=== PATIENT | female | born 1975 | race Caucasian/White ===

== ENCOUNTER → 2020-11-03 09:13 | Outpatient (CLI) | payer BC, SELFPAY ==
--- NOTE | 2020-11-03 | DI.US.S_ITS ---
PROCEDURE: US SOFT TISSUE HEAD AND NECK INDICATIONS: LOCALIZED SWELLING/LUMP LEFT NECK TECHNIQUE: Real-time scanning was performed of the neck region of interest, with image documentation. COMPARISON: None. FINDINGS: Targeted sonographic imaging over the patient directed area of palpable concern was performed. No focal mass or abnormal fluid collection visualized. No overlying skin abnormalities. No hypervascularity. There is a bony prominence underlying the palpable area of concern likely representing a prominent component of the underlying vertebral body. This is noted over the left side of the mid/posterior neck. IMPRESSION: No suspicious mass or fluid collection identified at the palpable area of patient concern in the left neck. There is underlying osseous prominence of a presumed vertebral body. Consider further evaluation with radiographs of the cervical spine with skin marker to denote area of palpable concern. Dictated by: Zack Novak M.D. on 11/03/2020 at 10:50 Approved by: Zack Novak M.D. on 11/03/2020 at 10:54
== END ==
PROVIDERS: Referring Provider Naturopath; Visit Provider Naturopath
DX: R22.9 Localized swelling, mass and lump, unspecified (principal)
CPT/HCPCS: 76536